=== PATIENT | female | born 1970 | race Caucasian/White ===

== ENCOUNTER → 2019-02-06 | Outpatient (CLI) | payer OTHER ==
[2016-01-19 16:47] VITALS: BP 113/69
[~2019-02-06] MED LIST: CYCL10TA2 PO; HYDR-2765 PO; HYDR12.575 PO; NAPR-514 PO; NAPR-683 PO; OXYC1TAB19 PO
--- NOTE | 2019-02-06 12:53 | KCIC ---
AP and Lateral Views of the Chest 02/06/2019 12:00 AM Indication: Dyspnea on exertion Comparison: None Findings: No pneumothorax or pleural effusion is seen. Heart size is normal. Large calcified left hilar lymph node noted. Soft tissue changes in the cervical spine noted. Bony thorax is grossly intact. IMPRESSION: 1.No evidence of acute cardiopulmonary process 2. Calcified left hilar adenopathy noted. Electronically signed by: Cristian Nrei MD (02/06/2019 12:50 PM) [id number]
== END | disposition home or self-care (01) ==
LOC: KCIC 12:25
PROVIDERS: ATTEND Physician Assistant Medical
DX: R59.0 Localized enlarged lymph nodes (principal)
CPT/HCPCS: 71046